=== PATIENT | male | born 1985 | race Caucasian/White ===

== ENCOUNTER 2019-11-18 10:09 | Emergency (ER) | payer OTHER, SELFPAY ==
[2019-11-18 10:18] VITALS: BP 133/93; PULSE 69; RESP 18; TEMP 36.9; O2SAT 96; BMI 23.7
--- NOTE | 2019-11-18 11:31 | ED_ITS ---
HPI - Back Pain/Injury <Aurora Vasquez PA-C - Last Filed: 11/18/19 16:01> General Chief Complaint: Back Pain/Injury Stated Complaint: back pain Time Seen by Provider: 11/18/19 10:52 Source: patient Limitations: no limitations History of Present Illness HPI Narrative: This is a previously healthy well-appearing 34-year-old nonsmoker who presents to the emergency department complaining of low back pain that is b een going on for 3 or 4 weeks that ?moves around from the left to the right but is mostly on the left.He says that he started having slight low back pain about a month ago and he did not think a whole lot of it because it was just twinges of pain but then it began getting slightly worse and then in the past week and half to 2 weeks it has continued to worsen to the point where last night he says that he was not able to sleep because he kept waking up because of the pain he says it was an ?04/01?. In the last 4 weeks in general his pain is improved with standing and lying flat and is worse with sitting last night is the 1st time that his pain was worse even when he was lying flat. He endorses doing frequent exercise but denies any changes to his exercise routine other than adding planks to his routine about 3 weeks ago thinking at the time that this might improve his then new slight back pain. Patient states that he did not eat since 8:00 a.m. last night because he thought we might want to draw labs today he says he does have an appetite and will look forward to eating as soon as he is finished with his visit. He denies nausea, vomiting, fever, chills, diarrhea, constipation, change in appetite, body aches, shortness of breath, numbness or tingling, saddle paresthesias, change in bowel or bladder function, dysuria, frequency, urgency, abdominal pain, chest pain, testicular pain, radiation to his belly or buttocks or lower extremities, history of back pain or back surgery, or any other symptoms Related Data Previous Rx's Medication Instructions Recorded tizanidine 4 mg PO BID PRN #20 cap 11/18/19 Allergies Allergy/AdvReac Type Severity Reaction Status Date / Time No Known Drug Allergies Allergy Verified 11/18/19 10:21 Review of Systems <Aurora Vasquez PA-C - Last Filed: 11/18/19 16:01> Review of Systems Narrative: GENERAL: Denies chills, fatigue, malaise, fever, sweats. HEENT: Denies sinus pain, ear pain, sore throat, difficulty swallowing, dizziness. RESPIRATORY: Denies dyspnea, cough, wheezing, hemoptysis, sputum. CARDIOVASCULAR: Denies chest pain, palpitations, orthopnea, edema, GASTROINTESTINAL: Denies nausea, vomiting, abdominal pain, diarrhea, constipation, melena. : Denies dysuria, frequency, incontinence, hematuria, urinary retention. MUSCULOSKELETAL: Positive for pain in his left lower back. Denies weakness, joint pain, or bony pain SKIN: Denies rash, skin lesions, or other NEUROLOGIC: Denies weakness, headache, numbness, change in speech, confusion, seizures, incoordination. PSYCHIATRIC: No concerning psychosocial issues. 12 point review of systems is negative except for those stated above Patient History <Aurora Vasquez PA-C - Last Filed: 11/18/19 16:01> Social History Smoking Status: Never smoker Smoking Status: Never smoker alcohol intake frequency: a few times a week Substance Use Type: does not use Exam <Aurora Vasquez PA-C - Last Filed: 11/18/19 16:01> Narrative Exam Narrative: GENERAL: Very well-appearing 34 year old patient appears stated age. Well-nourished, well-developed patient, in no apparent distress, stating he is in 7/10 pain. HEAD: Atraumatic. Normocephalic. EYES: Pupils equal round and reactive. Extraocular motions intact. No scleral icterus. No injection or drainage. ENT: Nose without bleeding, purulent drainage. Throat without erythema, tonsillar hypertrophy or exudate. Airway patent. NECK: Trachea midline. Non tender CARDIOVASCULAR: Regular rate and rhythm without murmurs, gallops, or rubs. Chest and sternum are atraumatic without pain on palpation. RESPIRATORY: Clear to auscultation. Breath sounds equal bilaterally. No wheezes, rales, or rhonchi. GASTROINTESTINAL: Abdomen soft, non-tender, nondistended. EXTREMITIES: Range of motion of lower extremities, at the hips and waist is intact without pain with the exception of extension of his left leg slightly increasing his back pain; strength is intact in all extremities 5/5, sensation is intact. No edema or joint tenderness. BACK: There is very slight tenderness at the SI joint on the left, there is no paraspinal tenderness there is no CVA tenderness, or rib tenderness, the spinous processes are Nontender without deformity or crepitance. No flank tenderness. NEURO: AOx3. SKIN: No rash or erythema of visible areas Initial Vital Signs Initial Vital Signs: Vital Signs Temperature 98.5 F 11/18/19 10:18 Pulse Rate 69 11/18/19 10:18 Respiratory Rate 18 11/18/19 10:18 Blood Pressure 133/93 H 11/18/19 10:18 Pulse Oximetry 96 11/18/19 10:18 <Rachel Lan DO - Last Filed: 11/20/19 07:34> Initial Vital Signs Initial Vital Signs: Vital Signs Temperature 98.5 F 11/18/19 10:18 Pulse Rate 69 11/18/19 10:18 Respiratory Rate 18 11/18/19 10:18 Blood Pressure 133/93 H 11/18/19 10:18 Pulse Oximetry 96 11/18/19 10:18 Scores <Aurora Vasquez PA-C - Last Filed: 11/18/19 16:01> GCS Jaswant coma scale eye opening: Spontaneous [place] coma scale verbal response: Orientated Jaswant coma scale motor response: Obey commands Jaswant coma scale total score: 15 Course <Aurora Vasquez PA-C - Last Filed: 11/18/19 16:01> Orders Ordered: Discontinued Medications Ketorolac Tromethamine (Toradol) 15 mg IM NOW ONE Stop: 11/18/19 12:29 Last Admin: 11/18/19 12:39 Dose: 15 mg Documented by: NIMA Vital Signs Vital signs: Vital Signs - 8 hr 11/18/19 10:18 11/18/19 12:44 Temperature 98.5 F Pulse Rate 69 70 Respiratory Rate 18 16 Blood Pressure 133/93 H Blood Pressure [Left Arm] 156/72 H Pulse Oximetry 96 100 <Rachel Lan DO - Last Filed: 11/20/19 07:34> Orders Ordered: Discontinued Medications Ketorolac Tromethamine (Toradol) 15 mg IM NOW ONE Stop: 11/18/19 12:29 Last Admin: 11/18/19 12:39 Dose: 15 mg Documented by: [email or web address] Vital Signs Vital signs: Vital Signs - 8 hr 11/18/19 10:18 11/18/19 12:44 Temperature 98.5 F Pulse Rate 69 70 Respiratory Rate 18 16 Blood Pressure 133/93 H Blood Pressure [Left Arm] 156/72 H Pulse Oximetry 96 100 MDM - Back Pain/Injury <Aurora Vasquez PA-C - Last Filed: 11/18/19 16:01> Differential Diagnosis Differential diagnosis: Likely lumbar radiculopathy, sciatica, strain of lumbar region, renal colic, discitis and other Medical Records Attestation: I reviewed the patient's medical records. Lab Data Attestation: I reviewed the patient's lab results. Result diagrams: 11/18/19 12:50 11/18/19 12:50 Labs: Lab Results 11/18/19 11/18/19 Range/Units 12:50 12:50 WBC 6.1 (4.5-11.0) X10^3/uL RBC 4.93 (4.5-5.9) X10^6/uL Hgb 15.2 (13.5-17.5) g/dL Hct 43.0 (41-53) % MCV 87.1 (80-100) fL MCH 30.8 (26-34) PG MCHC 35.4 (30-36) % RDW 12.2 (11.6-14.8) % Plt Count 206 (150-400) X10^3/uL Neut % (Auto) 53.9 (50-75) % Lymph % (Auto) 35.2 (25-40) % [place] % (Auto) 7.2 (3-14) % Eos % (Auto) 2.3 (2-4) % Baso % (Auto) 1.4 (0-2) % Neut # (Auto) 3300 (9538-8383) /uL Lymph # (Auto) 2100 (0537-5647) /uL [place] # (Auto) 400 (0-900) /uL Eos # (Auto) 100 (0-450) /uL Baso # (Auto) 100 (0-100) /uL ESR 3 (0-15) MM/HR Sodium 138 (137-145) mmol/L Potassium 4.1 (3.4-5.1) mmol/L Chloride 103 (98-107) mmol/L Carbon Dioxide 29 (22-32) mmol/L BUN 10 (9-20) mg/dL Creatinine 0.73 (0.66-1.25) mg/dL Estimated GFR > 60.0 (>60) mL/min BUN/Creatinine Ratio 13.7 (6-22) Glucose 91 (70-100) mg/dL Calcium 9.9 (8.4-10.2) mg/dL Total Bilirubin 0.9 (0.2-1.3) mg/dL AST 26 (17-59) IU/L ALT 16 (<50) IU/L Alkaline Phosphatase 58 (38-126) U/L Total Protein 7.5 (6.3-8.2) g/dL Albumin 4.9 (3.5-5.0) g/dL Globulin 2.6 (1.7-4.1) g/dL Albumin/Globulin Ratio 1.9 (1.0-2.8) Lipase 47 (23-300) U/L Urine Dip Bedside Urine Glucose Negative Bedside Urine Bilirubin - Negative Bedside Urine Ketone ++ 40 Urine Specific [place] 1.020 Bedside Urine Occult Blood - Negative Bedside Urine pH 6.0 Bedside Urine Protein - Negative Bedside Urine Urobilinogen - Negative Bedside Urine Nitrite - Negative Bedside Urine Leukocytes - Negative Esterase Imaging Data xr lumbar: Attestation: I personally reviewed and interpreted this imaging study as follows: Radiologist's Impression: [address] [id number] XRay Report Signed Patient: Felix Soto III [facility]#: [id number] : 1985Acct:[id number] Age/Sex: 34 / MDate of Service: 11/18/19 Loc: ED Accession Number: [id number] Procedure: XR lumbar spine 2-3V Ordering Provider: Aurora Vasquez P.A-C PROCEDURE: XR LUMBAR SPINE 2-3V INDICATIONS: new back pain TECHNIQUE: 3 views of the lumbar spine were acquired. COMPARISON: None. FINDINGS: Bones: 5 [id number] vertebrae are present. There is normal bony alignment. No vertebral body compression fractures. No suspicious bony lesions. Soft tissues: Overlying bowel gas pattern is normal. No suspicious soft tissue calcifications. IMPRESSION: No evidence acute bony abnormality of the lumbar spine. If clinical suspicion and/or symptoms persist, further assessment with repeat plain films, or advanced imaging (e.g., CT, MRI, or bone scan) may be helpful for further assessment. Dictated by: Dung Watkins M.D. on 11/18/2019 at 11:56 Approved by: Dung Watkins M.D. on 11/18/2019 at 11:57 MDM Narrative Medical decision making narrative: This is a 34-year-old healthy male in the who presents to the emergency department complaining of left lower back pain that has been going on for 3 or 4 weeks worsening last night to the point where he could not sleep. Differential diagnoses considered include lumbar strain, muscle spasms, lumbar sprain, slipped disc, herniated disc, sciatica, renal colic, ureteral stone, pancreatitis I have very low suspicion for acute abdominal process, and strongly suspect he has a muscle strain in his back. Labs and x-ray were unremarkable including urine. Ketones present in urine, possibly result of him fasting since last night. Follow-up plan was discussed the patient, work note was provided, prescription for Tizanidine for muscle spasms, patient advised to reduce his exercise routine and focus on gentle stretching, all questions were answered. <Rachel Lan, DO - Last Filed: 11/20/19 07:34> Lab Data Labs: Lab Results 11/18/19 11/18/19 Range/Units 12:50 12:50 WBC 6.1 (4.5-11.0) X10^3/uL RBC 4.93 (4.5-5.9) X10^6/uL Hgb 15.2 (13.5-17.5) g/dL Hct 43.0 (41-53) % MCV 87.1 (80-100) fL MCH 30.8 (26-34) PG MCHC 35.4 (30-36) % RDW 12.2 (11.6-14.8) % Plt Count 206 (150-400) X10^3/uL Neut % (Auto) 53.9 (50-75) % Lymph % (Auto) 35.2 (25-40) % [place] % (Auto) 7.2 (3-14) % Eos % (Auto) 2.3 (2-4) % Baso % (Auto) 1.4 (0-2) % Neut # (Auto) 3300 (5480-8455) /uL Lymph # (Auto) 2100 (7468-0348) /uL [place] # (Auto) 400 (0-900) /uL Eos # (Auto) 100 (0-450) /uL Baso # (Auto) 100 (0-100) /uL ESR 3 (0-15) MM/HR Sodium 138 (137-145) mmol/L Potassium 4.1 (3.4-5.1) mmol/L Chloride 103 (98-107) mmol/L Carbon Dioxide 29 (22-32) mmol/L BUN 10 (9-20) mg/dL Creatinine 0.73 (0.66-1.25) mg/dL Estimated GFR > 60.0 (>60) mL/min BUN/Creatinine Ratio 13.7 (6-22) Glucose 91 (70-100) mg/dL Calcium 9.9 (8.4-10.2) mg/dL Total Bilirubin 0.9 (0.2-1.3) mg/dL AST 26 (17-59) IU/L ALT 16 (<50) IU/L Alkaline Phosphatase 58 (38-126) U/L Total Protein 7.5 (6.3-8.2) g/dL Albumin 4.9 (3.5-5.0) g/dL Globulin 2.6 (1.7-4.1) g/dL Albumin/Globulin Ratio 1.9 (1.0-2.8) Lipase 47 (23-300) U/L Urine Dip Bedside Urine Glucose Negative Bedside Urine Bilirubin - Negative Bedside Urine Ketone ++ 40 Urine Specific [place] 1.020 Bedside Urine Occult Blood - Negative Bedside Urine pH 6.0 Bedside Urine Protein - Negative Bedside Urine Urobilinogen - Negative Bedside Urine Nitrite - Negative Bedside Urine Leukocytes - Negative Esterase Discharge Plan Departure Patient Disposition: Home Clinical Impression: Strain of lumbar region Qualifiers: Encounter type: initial encounter Qualified Code(s): S39.012A - Strain of muscle, fascia and tendon of lower back, initial encounter Acute back pain Qualifiers: Back pain location: low back pain Back pain laterality: left Sciatica presence: without sciatica Qualified Code(s): M54.5 - Low back pain Discharge Date/Time: 11/18/19 13:51 Instructions: DI for Low Back Pain, DI for Back Spasm, DI for Back Strain or Sprain Activity Restrictions/Additional Instructions: Thank you for letting us to be part of your care in the emergency department today. There is no evidence of an emergent or life threatening illness at this time, but follow up with your doctor in 1-2 days is recommended nonetheless to continue to rule out serious underlying causes of your symptoms. Please call the office for an appointment. Please return to the Emergency Department for any worsening or persistent symptoms. Please take medications as directed. The labs and imaging that we obtained today did not suggest that there is a concerning acute process going on, I think as we discussed initially is most likely that you have a strain of your muscle in your back, I recommend that you reduce your physical activity particularly your exercise routine for the next few weeks and focus more on gentle stretching. A muscle strain will not heal well if does not have a chance to rest. If you do have any new or concerning symptoms to you or worsening of your pain please do not hesitate to seek medical care. You can alternate Tylenol and ibuprofen for pain. I am also prescribing a muscle relaxant that may help if you have muscle spasms. You should not operate machinery or drive vehicles while taking this. I have also prescribed a work note for you. Prescriptions: New tizanidine 4 mg capsule 4 mg PO BID PRN (Reason: muscle spasticity) Qty: 20 RF: 0 Stand Alone Forms: Work Release Note <Rachel Lan DO - Last Filed: 11/20/19 07:34> Cosign ED Attending [place] Attestation: I was immediately available in the department for consultation. Documentation has been reviewed. I agree with assessment and plan.
--- NOTE | 2019-11-18 12:28 | DI.RAD.S_ITS ---
PROCEDURE: XR LUMBAR SPINE 2-3V INDICATIONS: new back pain TECHNIQUE: 3 views of the lumbar spine were acquired. COMPARISON: None. FINDINGS: Bones: 5 [id number] vertebrae are present. There is normal bony alignment. No vertebral body compression fractures. No suspicious bony lesions. Soft tissues: Overlying bowel gas pattern is normal. No suspicious soft tissue calcifications. IMPRESSION: No evidence acute bony abnormality of the lumbar spine. If clinical suspicion and/or symptoms persist, further assessment with repeat plain films, or advanced imaging (e.g., CT, MRI, or bone scan) may be helpful for further assessment. Dictated by: Dung Watkins M.D. on 11/18/2019 at 11:56 Approved by: Dung Watkins M.D. on 11/18/2019 at 11:57
[2019-11-18] MEDS: KETOROLAC 60 MG/2 ML VIAL 15 MG IM (12:39)
[2019-11-18 12:44] VITALS: BP 156/72; PULSE 70; RESP 16; O2SAT 100
[2019-11-18 12:59] LABS: Add Manual Diff / Slide Review NO; Basophils Absolute Auto 100 /uL (0-100); Basophils Percent Auto 1.4 % (0-2); Eosinophils Absolute Auto 100 /uL (0-450); Eosinophils Percent Auto 2.3 % (2-4); Hemoglobin 15.2 g/dL (13.5-17.5); Lymphocytes Absolute Auto 2100 /uL (1100-4500); Lymphocytes Percent Auto 35.2 % (25-40); Mean Corpuscular HGB Conc 35.4 % (30-36); Mean Corpuscular Hemoglobin 30.8 PG (26-34); Mean Corpuscular Volume 87.1 fL (80-100); Monocytes Absolute Auto 400 /uL (0-900); Monocytes Percent Auto 7.2 % (3-14); Neutrophils Absolute Auto 3300 /uL (1500-7000); Neutrophils Percent Auto 53.9 % (50-75); Platelet Count 206 X10^3/uL (150-400); Red Blood Cell Count 4.93 X10^6/uL (4.5-5.9); Red Cell Distribution Width 12.2 % (11.6-14.8); White Blood Cell Count 6.1 X10^3/uL (4.5-11.0)
[2019-11-18 13:16] LABS: Alanine Aminotransferase 16 IU/L (<50); Albumin 4.9 g/dL (3.5-5.0); Albumin Globulin Ratio 1.9 (1.0-2.8); Alkaline Phosphatase 58 U/L (38-126); Aspartate Aminotransferase 26 IU/L (17-59); BUN Creatinine Ratio 13.7 (6-22); Bilirubin Total 0.9 mg/dL (0.2-1.3); Blood Urea Nitrogen 10 mg/dL (9-20); Calcium 9.9 mg/dL (8.4-10.2); Carbon Dioxide 29 mmol/L (22-32); Chloride 103 mmol/L (98-107); Estimated Glomerular Filt Rate > 60.0 mL/min (>60); Globulin 2.6 g/dL (1.7-4.1); Glucose 91 mg/dL (70-100); HEMOLYSIS < 15 (0-50); Lipase 47 U/L (23-300); Potassium 4.1 mmol/L (3.4-5.1); Sodium 138 mmol/L (137-145); Total Protein 7.5 g/dL (6.3-8.2)
[2019-11-18 13:40] LABS: Erythrocyte Sedimentation Rate 3 MM/HR (0-15)
== END 2019-11-18 13:51 | disposition home or self-care (01) ==
PROVIDERS: Emergency Provider Student in an Organized Health Care Education/Training Program
DX: S39.012A Strain of muscle, fascia and tendon of lower back, initial encounter (principal)
CPT/HCPCS: 36415; 72100; 80053; 81003; 83690; 85025; 85651; 96372; 99283; J1885